=== PATIENT | male | born 1985 | race Caucasian/White ===

== ENCOUNTER 2017-04-24 02:51 | Emergency (ER) | payer OTHER ==
[2017-04-24 08:29] LABS: TROPONIN-I < 0.012 ng/ml (0.00-0.12)
[2017-04-24] MEDS: SOD CHLORIDE 0.9% 1,000 ML IV (09:08)
[2017-04-24 09:45] LABS: ADD MAN DIFF? NO
[2017-04-24 09:49] LABS: WHITE BLOOD COUNT 8.9 10^3/ul (4.8-10.8)
[2017-04-24 09:49] LABS: BASOPHILS % 0.4 % (0.0-2.0); EOSINOPHILS # 0.2 10^3/ul (0.0-0.5); EOSINOPHILS % 2.2 % (0.0-7.0); HEMATOCRIT 49.1 % (42.0-52.0); HEMOGLOBIN 16.6 g/dl (14.0-18.0); LYMPHOCYTES # 1.2 10^3/ul (0.8-2.9); MEAN CORPUSCULAR HEMOGLOBIN 27.7 pg (29.0-33.0); MEAN CORPUSCULAR HGB CONC 33.8 g/dl (32.0-37.0); MEAN CORPUSCULAR VOLUME 81.8 fl (82.0-101.0); MEAN PLATELET VOLUME 10.8 fl (7.4-10.4); MONOCYTE # 0.8 10^3/ul (0.3-0.9); MONOCYTES % 9.1 % (0.0-11.0); NEUTROPHIL # 6.6 10^3/ul (1.6-7.5); NEUTROPHILS % 74.2 % (39.0-77.0); PLATELET COUNT 204 10^3/UL (140-415); RED CELL DISTRIBUTION WIDTH 12.1 % (11.5-14.5)
[2017-04-24 10:09] LABS: PROTIME 12.2 Sec (11.9-14.9)
[2017-04-24 10:12] LABS: D-DIMER 573.48 ng/ml (<460)
[2017-04-24 10:20] LABS: ANION GAP 20 (8-16); BLOOD UREA NITROGEN 17 mg/dl (7-20); CALCIUM 10.1 mg/dl (8.4-10.2); CARBON DIOXIDE 25 mmol/L (21-31); CHLORIDE 105 mmol/L (97-110); GLUCOSE 87 mg/dl (70-220); POTASSIUM 4.1 mmol/L (3.5-5.1); SODIUM 146 mmol/L (135-144)
[2017-04-24] MEDS: IBUPROFEN 600 MG TAB PO (10:40)
[2017-04-24] MEDS: IOHEXOL 100 ML (10:49)
[2017-04-24] MEDS: SOD CHLORIDE 0.9% 100 ML (10:49)
[2017-04-24 12:12] LABS: FREE T4 (FREE THYROXINE) 0.93 ng/dl (0.79-2.35)
[2017-04-24 13:40] LABS: FREE T3 4.35 pg/ml (2.77-5.27)
== END 2017-04-24 14:24 | disposition home or self-care (01) ==
LOC: FTE 02:51
DX: R07.9 Chest pain, unspecified (principal); R00.0 Tachycardia, unspecified
CPT/HCPCS: 36415; 71010; 71275; 80048; 84439; 84443; 84481; 84484; 85025; 85378; 85610; 85730; 87400; 93005; 99285-25